=== PATIENT | female | born 1995 | race Caucasian/White ===

== ENCOUNTER 2016-05-02 16:06 | Emergency (ER) | payer OTHER ==
[~2016-05-02] VITALS: Ht 157.5 cm; Wt 81.6 kg
--- NOTE | 2016-05-02 16:38 | ED GI/GU/ABDOMINAL COMPLAINT ---
History of Present Illness General Chief Complaint: Abdominal Pain/Flank Pain Stated Complaint: ABD PAIN Source: patient Exam Limitations: no limitations Vital Signs & Intake/Output Vital Signs & Intake/Output Vital Signs Date Time Temp Pulse Resp B/P Pulse O2 O2 Flow FiO2 Ox Delivery Rate 05/02 1832 Room Air 05/02 1633 97.0 85 16 106/72 99 Room Air Allergies Coded Allergies: amoxicillin (From AUGMENTIN) (GI UPSET 05/02/16) clavulanic acid (From AUGMENTIN) (GI UPSET 05/02/16) oxycodone (PALE, VOMIT, CLAMMY 05/02/16) Reconcile Medications Atorvastatin Calcium (Lipitor) 20 MG TABLET 1 TAB PO DAILY CHOLESTEROL ( Reported) Citalopram Hydrobromide (Celexa) 40 MG TABLET 1 TAB PO DAILY ANXIETY ( Reported) Ibuprofen (Advil Migraine) 200 MG CAPSULE 3 CAP PO PRN PAIN (Reported) Ketorolac Tromethamine 10 MG TABLET 1 TAB PO TID PRN PAIN RECEIVED IM IN ER Ondansetron HCl (Zofran) 4 MG TABLET 1 TAB PO Q6-8P PRN NAUSEA Sulfamethoxazole/Trimethoprim (Bactrim 400-80 MG Tablet) 400 MG-80 MG TABLET 1 TAB PO BID UTI Triage Note: BILATERAL BREAST PAIN, L>R RADIATING INTO BACK X2 WEEKS. TRANSVERSE MID UMBILICAL PAIN RADIATING DOWN INTO VAGINA AND PELVIC AREA SINCE THURSDAY. VOMITED X1 TODAY, LAST BM TODAY AND NORMAL. ENDORSES FATIGUE. 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 LAST MENSES Mar. SAW PMD THURSDAY AND HAD TEST AND BV TEST BOTH NEGATIVE. INCREASED FREQUENCY WITH URINATION, DENIES BURNING OR PAIN. Triage Nurses Notes Reviewed? yes ? N Is pt currently ? No Duration: constant Timing: recent history Severity Numbers: 6 Radiation: back Activities at Onset: eating Prior Abdominal Problems: none HPI: Patient is a 20-year-old female who presents emergency room multiple complains. Patient states for the past 2 weeks she's been complaining of gradual onset of persistent low-grade bilateral breast pain and swelling pain is worse on the left breast in the right where she is noted intermittent discharge from the nipple region noted to the white in color. Patient also states that last 5 days she's noticed gradual onset of left-sided lower pelvic and suprapubic abdominal pain that has been persistent and was today patient also has noticed increased frequency of urination and patient also states that after eating a bagel she could not tolerate it and vomited it up. Patient has been able tolerate by mouth liquids however. Patient took 1 dose of ibuprofen initially with no relief of symptoms. Patient took multiple tests at home and were negative. Denies any fever chills chest pain arm pain jaw pain vaginal bleeding or vaginal discharge hematuria. Last mental PERIOD Was approximately 6 weeks ago. Denies any oral contraceptive use, history of DVT or PE leg swelling, hemoptysis recent travel recent surgery Past History Travel History Traveled to [facility] past 21 day No Medical History Any Pertinent Medical History? see below for history Neurological: MIGRAINES EENT: NONE Cardiovascular: hyperlipidemia Respiratory: NONE Gastrointestinal: NONE Hepatic: NONE Renal: NONE Musculoskeletal: NONE Psychiatric: anxiety Endocrine: NONE Blood Disorders: NONE Cancer(s): NONE Surgical History Surgical History: non-contributory Psychosocial History What is your primary language Slovenian Tobacco Use: Quit >30 days ago Daily Tobacco Use Amount/Type: => 5 Cigarettes daily ETOH Use: occasional use Illicit Drug Use: marijuana Family History Hx Contributory? No Review of Systems Review of Systems Constitutional: Reports: see HPI. Denies: chills, fever. EENTM: Reports: no symptoms. Respiratory: Reports: no symptoms. Cardiovascular: Reports: no symptoms. GI: Reports: see HPI, abdominal pain. Genitourinary: Reports: see HPI, frequency. Musculoskeletal: Reports: see HPI, back pain. Skin: Reports: no symptoms. Neurological/Psychological: Reports: no symptoms. Hematologic/Endocrine: Reports: no symptoms. Immunologic/Allergic: Reports: no symptoms. All Other Systems: Reviewed and Negative Physical Exam Physical Exam General Appearance: well developed/nourished, no apparent distress, alert Gastrointestinal: normal bowel sounds, soft, RIGHT LOWER AND LEFT LOWER QUADRANT POINT TENDERNESS NOTED, NO EPIGASTRIC PAIN NO REBOUND TENDERNESS NO PERITONEAL SIGNS Comments: Well-developed well-nourished person in no acute distress HEENT: Normal EENT exam, Neck: Supple, no lymphadenopathy, normal range of motion without pain or tenderness Back: Nontender, no CVA tenderness. Cardiovascular: Regular rate and rhythms no murmurs rubs or gallops, normal JVP Respiratory: Chest nontender. No respiratory distress.breath sounds clear to auscultation bilaterally Breast-normal inspection generalized point tenderness noted no discharge noted no erythema no fluctuance Extremity: No edema, no calf tenderness to palpation, normal and equal pulses. Neuro: Alert oriented x3, motor sensory normal, Skin: No appreciable rash on exposed skin, skin is warm and dry. Psych: Mood and affect is normal, memory and judgment is normal. Core Measures ACS in differential dx? No Severe Sepsis Present: No Septic Shock Present: No Progress Differential Diagnosis: appendicitis, biliary colic, bowel obstruction, colon cancer, cholecystitis, diverticulitis, ectopic , endometritis, esophageal varices, gastritis, hepatitis, hernia, hemorrhoids, ischemic bowel, inflamm bowel dis, intrauterine , kidney stone, Gaby-Jose tear, ovarian cyst, ovarian torsion, pancreatitis, PID/cervicitis, peptic ulcer, PUD/ GERD, perforated viscous, SBO, threatened AB, UTI/pyelo Plan of Care: Orders Procedure Date/time Status Add-on Test (ER Only) 05/02 1744 Active LIPASE 05/02 1646 Complete COMPREHENSIVE METABOLIC PANEL 05/02 1646 Complete CBC WITHOUT DIFFERENTIAL 05/02 1646 Complete AMYLASE 05/02 1646 Complete CULTURE,URINE 05/02 1643 Active URINE 05/02 1636 Complete URINALYSIS 05/02 1636 Complete Laboratory Tests 05/02/16 1709: Anion Gap 11, Estimated GFR > 60, BUN/Creatinine Ratio 17.5, Glucose 97, Calcium 10.0, Total Bilirubin 0.6, AST 19, ALT 30, Alkaline Phosphatase 56, Total Protein 7.0, Albumin 4.5, Globulin 2.5, Albumin/Globulin Ratio 1.8, Amylase 34, Lipase 120, CBC w Diff NO MAN DIFF REQ, RBC 4.43, MCV 93.9, MCH 31.1 H, RDW 13.2, MPV 7.5, Gran % 64.2, Lymphocytes % 29.8, Monocytes % 5.1, Eosinophils % 0.3, Basophils % 0.6, Absolute Granulocytes 6.8 H, Absolute Lymphocytes 3.1, Absolute Monocytes 0.5, Absolute Eosinophils 0, Absolute Basophils 0.1, PUBS MCHC 33.2 05/02/16 1643: Urine Color YEL, Urine Clarity HAZY H, Urine pH 6.0, Ur Specific [place] 1.025, Urine Protein NEG, Urine Ketones NEG, Urine Nitrite NEG, Urine Bilirubin NEG, Urine Urobilinogen 0.2, Ur Leukocyte Esterase NEG, Ur Microscopic SEDIMENT EXAMINED, Urine WBC RARE, Ur Epithelial Cells MANY H, Urine Bacteria MANY H, Urine Hemoglobin NEG, Urine Glucose NEG, Urine Test NEGATIVE Microbiology 05/02 1643 URINE ROUT: Urine Culture - RECD Patient on initial examination was in no apparent distress. Blood work was obtained showing unremarkable findings urine culture currently pending patient will be treated for concerns of uncomplicated cystitis. Patient was able tolerate by mouth on discharge. Patient was given copies of blood work to follow-up with NURSE STAFF. My special appendicitis is low prior to discharge however I did discuss with patient of concerns of appendicitis to return to the emergency room and she will comply. (TALHA FERNÁNDEZ,DAVID) Initial ED EKG: none Departure Departure Disposition: HOME OR SELF CARE Condition: Stable Clinical Impression Primary Impression: UTI (urinary tract infection) Secondary Impressions: Abdominal pain, Breast pain, Nausea Referrals: BINU SAUCEDO (PCP/Family) Additional Instructions: As discussed begin the prescription of ketorolac for pain and inflammation. Begin the prescription of Zofran for nausea. And begin a prescription of Bactrim as directed for the full course. On Thursday if symptoms still continue follow-up with your NURSE STAFF. Prescription is awaiting your [facility]. If symptoms worsen return to emergency room please provide your NURSE STAFF with copies of labs obtained in the emergency room Departure Forms: Customer Survey General Discharge Information Prescriptions: Current Visit Scripts Sulfamethoxazole/Trimethoprim (Bactrim 400-80 MG Tablet) 1 TAB PO BID #6 TAB Ondansetron HCl (Zofran) 1 TAB PO Q6-8P PRN NAUSEA #15 TAB Ketorolac Tromethamine 1 TAB PO TID PRN PAIN #15 TAB RECEIVED IM IN ER
[2016-05-02] MEDS ORDERED: LIPITOR20 M2 PO (16:54)
[2016-05-02] MEDS ORDERED: ADVIL MIGRAINE200 M1 PO (16:55)
[2016-05-02] MEDS ORDERED: CELEXA40 M1 PO (16:55)
[2016-05-02 17:17] LABS: ABSOLUTE BASOPHIL COUNT 0.1 /CUMM (0.0-0.2); ABSOLUTE EOSINOPHIL COUNT 0 /CUMM (0.0-0.7); ABSOLUTE GRANULOCYTE CT 6.8 /CUMM (1.4-6.5); ABSOLUTE LYMPH COUNT 3.1 /CUMM (1.2-3.4); ABSOLUTE MONOCYTE COUNT 0.5 /CUMM (0.10-0.60); BASOPHIL % 0.6 % (0.0-2.0); EOSINOPHIL % 0.3 % (0-5); GRANULOCYTE % 64.2 % (42.2-75.2); HEMATOCRIT 41.6 % (37-47); MEAN CORPUSCULAR HGB 31.1 PG (27.0-31.0); MEAN CORPUSCULAR HGB CONC 33.2 G/DL (33.0-37.0); MEAN CORPUSCULAR VOLUME 93.9 FL (81.0-99.0); MEAN PLATELET VOLUME 7.5 FL (7.4-10.4); PLATELET COUNT 359 /CUMM (130-400); RBC DISTRIBUTION WIDTH 13.2 % (11.5-14.5); RED BLOOD CELL CT 4.43 /CUMM (4.20-5.40); WHITE BLOOD CELL COUNT 10.5 /CUMM (4.8-10.8)
[2016-05-02] MEDS ORDERED: BACTRIM 400-801 EACH PO (18:32)
[2016-05-02] MEDS ORDERED: ZOFRAN4 M2 PO (18:32)
[2016-05-02] MEDS ORDERED: KETOROLAC TROME10 M1 PO (18:32)
[2016-05-02 18:42] VITALS: BP 143/58
== END 2016-05-02 18:46 ==
LOC: ERH 16:06
PROVIDERS: Physician Assistant
DX: N39.0 Urinary tract infection, site not specified (principal); N64.4 Mastodynia
CPT/HCPCS: 81001; 81025; 87086; 96372; J1885; J3101